=== PATIENT | male | born 1950 | race Caucasian/White ===

== ENCOUNTER 2023-10-12 06:52 | Outpatient (OUT) | payer MEDICARE, SELFPAY ==
--- NOTE | 2023-10-12 07:16 | MR_ITS ---
The [address] [address] Patient Name: LOUISE LOPEZ MRN: [id number] date: 1950 Sex: M Assigned Patient Location: LAB Current Patient Location: LAB Accession/Order Number: [id number] Exam Date: 10/12/2023 07:35 Report Date: 10/12/2023 09:12 At the request of: DANIEL HERNANDEZ Procedure: MR head/brain wo/w con MR head/brain wo/w con, 10/12/2023 7:35 AM EST INDICATION: Ataxia R27.0 COMPARISON: There is no appropriate prior study for comparison. TECHNIQUE: Multiplanar, multisequential MRI images of brain were obtained without and with injection of contrast. FINDINGS: The cerebral sulci as well as ventricular system are appropriate for age. There is no restricted diffusion. Hyperintensities on T2 and FLAIR images in the fowler radiata and centrum semiovale with sparing of U fibers are nonspecific, statistically most likely consistent with mild microvascular ischemic changes. There is no intracranial mass, mass effect, midline shift, intra or extra-axial fluid collection or large hemorrhage. No abnormal enhancing lesion is noted. Normal flow-void in the intracranial vessels is noted. The visualized portions of orbits, mastoid air cells as well as paranasal sinuses are unremarkable. MR/MR head/brain wo/w con IMPRESSION: No acute intracranial process is noted. No definite radiological finding to explain patient's symptoms. Electronically authenticated by: RALPH SÁNCHEZ Date: 10/12/2023 09:12
[2023-10-12 07:46] LABS: Estimated GFR (African America >60 (>=60); Estimated GFR (Non-African Ame >60 (>=60)
== END 2023-10-12 06:53 | disposition home or self-care (01) ==
LOC: LAB 06:56
PROVIDERS: PCP Family Medicine; Visit Provider Psychiatry & Neurology Neurology
DX: R27.0 Ataxia, unspecified (principal)
CPT/HCPCS: 36415; 70553; 82565; A9575

== ENCOUNTER 2024-03-22 15:22 | Emergency (ER) | payer MEDICARE, SELFPAY ==
[2024-03-22] VITALS (13 sets, daily range): BP systolic 127–135; BP diastolic 67–69; PULSE 54–70; TEMP 36.6; O2SAT 96–99; BMI 20.7
--- OUTSIDE RECORDS SUMMARY | 2024-03-22 15:39 | XMS_ITS | CCD ---
Author Organization [facility] Care Team Providers Care Data Operations Manager Name Role Phone Marya Son Primary Care Physician Vamsi Chang Primary Care Physician Unavailable Primary Care Provider UnavailAUDELIA Aguilera Attending Unavailable OMERO EDMONDS Attending Unavailable ELAINE MILLAN Attending Unavailable ELAINE MILLAN Attending Unavailable MD Vamsi Chang Attending Unavailable MD Vamsi Chang Attending Unavailable Nicole Mendez Attending Unavailable SHO HERBERT Attending UnavailSHO Sullivan Admitting UnavailNicole Marmolejo Attending Unavailable Nicole Mendez Admitting Unavailable MD Vamsi Chang Attending Unavailable Allergies Allergy Classification Reported Allergen(s) Allergy Type Date of Onset Reaction(s) Facility NSAIDs (1 source) NSAIDs; Translations: [NSAIDs] Drug Allergy [facility] Repository Unclassified (1 source) No Known Medication Allergies; Translations: [No Known Medication Allergies] Propensity to adverse reactions (disorder) [facility] Repository (2 sources) Non-steroidal anti-inflammato ry agent; Translations: [NSAIDs] Drug allergy Unknown (qualifier value) [facility] [place] Comment on above: effected Miners dise ase Medications Current Medications Medication Drug Class(es) Dates Sig (Normalized) Sig (Original) amoxicillin 120 mg/ml / clavulanate 8.58 mg/ml oral suspension (4 sources) Penicillin-class Antibacterial Start: 08-25-2022 End: 10-14-2023 take 8 mL by mouth twice daily amoxicillin-clavul anate (Augmentin ES) 600-42.9 MG/5ML suspension TAKE 8 ML BY MOUTH TWICE A DAY FOR 7 DAYS*DISCARD REMAINDER* 0 08/25/2022 10/14/2023 Discontinued Start: 08-25-2022 End: 09-01-2022 take 8 mL by mouth twice daily Augmentin ES 600 mg-42. 9 mg/5 mL Powder 125 mL 8 mL, Oral, BID for 7 day(s), 112 mL, Refill(s) 0, [facility]/pharmacy #[id number], 172, cm, 08/25/22 9:26:00 EST, Height/Length Dosing, 65.1, kg, 08/25/22 9:26:00 EST, Weight Dosing Start Date: 08/25/22 Stop Date: 09/01/22 Status: Ordered aspirin 81 mg delayed release oral tablet (2 sources) Platelet Aggregation Inhibitor, Nonsteroidal Anti-inflammatory Drug Start: 12-23-2022 take 1 tablet by mouth once daily aspirin 81 mg Oral EC Tab 81 mg = 1 tab(s), Oral, Daily, # 30 tab(s), Refills(s) 0 Start Date: 12/23/22 Status: Ordered atorvastatin 10 mg oral tablet (10 sources) HMG-CoA Reductase Inhibitor Start: 09-06-2011 take 1 tablet by mouth once daily Lipitor 10 mg Tab 10 mg = 1 tab(s), Oral, Daily, # 90 tab(s), Refills(s) 3, Pharmacy: [facility], 172, cm, 12/23/22 9:38:00 EDT, Height/Length Dosing, 64.9, kg, 12/23/22 9:38:00 EDT, Weight Dosing Start Date: 06/13/23 Status: Ordered famotidine 20 mg oral tablet (3 sources) Histamine-2 Receptor Antagonist Start: 02-04-2023 End: 10-14-2023 take 1 tablet by mouth in the morning famotidine (Pepcid) 20 MG tablet Take 20 mg by mouth in the morning and 20 mg before bedtime. 0 02/04/2023 10/14/2023 Discontinued omeprazole 40 mg delayed release oral capsule (3 sources) Proton Pump Inhibitor Start: 02-04-2023 End: 10-14-2023 take 1 capsule by mouth in the morning omeprazole (PriLOSEC) [address] capsule Take 40 mg by mouth in the morning. 0 02/04/2023 10/14/2023 Discontinued Problems Problem Classification Problem Date Documented Date Episodic/Chronic Disorders of lipid metabolism (9 sources) Hyperlipidemia; Translations: [Hyperlipidemia, unspecified] Onset: 06-15-2022 Chronic Esophageal disorders (8 sources) Gastroesophageal reflux disease without esophagitis; Translations: [Gastro-esophageal reflux disease without esophagitis] Onset: 06-15-2022 Chronic Immunizations and screening for infectious disease (1 source) Vaccination given; Translations: [Encounter for immunization] Onset: 06-16-2022 Episodic Neoplasms of unspecified nature or uncertain behavior (2 sources) Neoplastic disease; Translations: [Neoplasm of unspecified behavior of bone, soft tissue, and skin] 10-14-2023 Episodic Other nutritional; endocrine; and metabolic disorders (2 sources) Weight loss 08-22-2023 Episodic Other skin disorders (2 sources) Seborrheic keratosis; Translations: [Other seborrheic keratosis] 10-14-2023 Episodic Other upper respiratory infections (1 source) Acute maxillary sinusitis, unspecified; Translations: [Acute maxillary sinusitis, unspecified] Onset: 08-25-2022 Episodic Residual codes; unclassified (2 sources) Body mass index 20-24 - normal; Translations: [Body mass index (BMI) 22.0-22.9, adult] Onset: 06-16-2022 Episodic Residual codes; unclassified (2 sources) Patient encounter status; Translations: [Other specified health status] Onset: 06-16-2022 Episodic Residual codes; unclassified (2 sources) Amnesia 08-22-2023 Episodic Residual codes; unclassified (2 sources) Family history of dementia 08-22-2023 Episodic Screening and history of mental health and substance abuse codes (2 sources) Ex-smoker 12-23-2022 Episodic Unclassified (9 sources) Body mass index 20-24 - normal 06-16-2022 Unclassified (7 sources) Non-smoker 06-16-2022 Unclassified (6 sources) Patient encounter status 08-22-2023 Unclassified (2 sources) Seborrheic keratosis 02-08-2023 Results Test Name Value Interpretation Reference Range Facility Family Medicine Office/Clini c Noteon 03-06-2024 Family Medicine Office/Clinic Note Family Medicine Office/Clinic Note HPI Staff This visit was conducted via two-way, real-time interactive video communications by Vamsi Chang MD from my office using [employer]. The patient was [place] [address] [address] [place] [id number], with _ in attendance. A signed authorization for treatment has been obtained via our standard authorization packet or by verbal consent by the patient or their legal patient representative. The patient's identity and location in [place] has been verified by our office staff. If it is determined that the patient should be evaluated in the clinic, the patient will be directed to the appropriate clinic or venue. A limited physical exam will be conducted reviewing those areas of the body visible via telecommunications. Total time spent preparing the chart, conducting the encounter with the patient and family, and time spent documenting, reviewing, and ordering tests was _ minutes. All records and visits comply with HIPAA standards. Patient + for covid, body aches, Sore throat but it left after he woke up, some nasal congestion, fatigue, when he woke yesterday didn't feel the best so later in the day checked his temp fever of 101.5 and a bit later tested for covid and it came back positive. the headache and fever, some chest tightness and congestion. He's not sure if the tightness is the muscle aches or something else. no shortness of breath Hasn't tried anything at home not even tylenol for his body aches and fever. Patient or Guardian reported vitals: Temp: 100.0 Wt: 140 lbs Ht: _ BP: _ HR: _ Sp02: _ History of Present Illness - NO SOB, - Chest Tightness minimally - Fever - Body aches. - See staff HPI. - Physical Exam General: alert, no acute distress ENMT: oral mucosa moist, Cardiovascular: normal peripheral perfusion Respiratory: respirations non labored Extremities: no deformity, no trauma Neurological: oriented x 4, LOC appropriate for age, CN II-XII intact, Assessment/Plan 1. COVID-19 (U07.1: COVID-19) - Precautions discussed in detail. When to return discussed along with when to go to the ER. Pt verbalized understanding. - Azithro/Medrol - Pt struggled with steroids in the past. - Pros and Cons discussed in detail. - Follow up PRN Orders: azithromycin, = 1 packet(s), Oral, As Directed, as directed on package labeling, X 5 day(s), # 6 tab(s), Refills(s) 0, Pharmacy: [facility]/pharmacy #[id number], 172, cm, 08/22/23 8:38:00 EST, Height/Length Dosing, 63.8, kg, 08/22/23 8:38:00 EST, Weight Dosing methylPREDNISolone, = 1 packet(s), Oral, As Directed, as directed on package labeling, X 6 day(s), # 21 tab(s), Refills(s) 0, [id number], cm, 08/22/23 8:38:00 EST, Height/Length Dosing, 63.8, kg, 08/22/23 8:38:00 EST, Weight Dosing Follow-up No qualifying data available Problem List/Past Medical History Ongoing BMI 21.0-21.9, adult BMI 22.0-22.9, adult COVID-19 Family history of dementia Former smoker Gastroesophageal reflux disease without esophagitis Hyperlipidemia Loss of weight Memory loss Non-smoker Prostate cancer screening Screening for hyperlipidemia SK (seborrheic keratosis) Wellness examination Historical No qualifying data Procedure/Surgical History Bunion. Medications aspirin 81 mg Oral EC Tab, 81 mg= 1 tab(s), Oral, Daily azithromycin 250 mg Tab, 1 packet(s), Oral, As Directed Lipitor 10 mg Tab, 10 mg= 1 tab(s), Oral, Daily, 3 refills Medrol 4 mg Tab, 1 packet(s), Oral, As Directed Allergies NSAIDs (Unknown) Social History Tobacco Former smoker, quit more than 30 days ago Tobacco Use:. Never Smokeless Tobacco Use:. Cigarettes, Household tobacco concerns: No., 08/22/2023 Family History Family history is negative Immunizations Vaccine Date Status zoster vaccine live 02/04/2023 Recorded influenza virus vaccine, inactivated 06/16/2022 Given SARS-CoV-2 mRNA (tozinameran 5y-11y) vac 08/2021 Recorded SARS-CoV-2 mRNA (tozinameran 5y-11y) vac 2020 Recorded SARS-CoV-2 mRNA (tozinameran 5y-11y) vac 2020 Recorded typhoid vaccine, inactivated 05/21/2011 Recorded influenza virus vaccine, inactivated 05/21/2011 Recorded hepatitis A adult vaccine 05/21/2011 Recorded typhoid vaccine, live 12/24/1997 Recorded Hep A, unspecified formulation 11/27/1997 Recorded Td(adult) unspecified formulation 01/19/1996 Recorded typhoid vaccine, live 03/18/1992 Recorded typhoid vaccine, live 03/01/1990 Recorded typhoid vaccine, live 01/18/1989 Recorded Td(adult) unspecified formulation 01/18/1989 Recorded Normal [facility] Comment on above: Result Comment: Elec tronically Signed By: Bernardo GONZALEZ, Vamsi [employer]\Date and Time Signed: 03/06/24 11:57 EDT CHEMISTRYOrdered By: Patsy hooks on 12-07-2023 Cobalamin (Vitamin B12) [Mass/Vol] 259 pg/mL Normal 50 - 1500 pg/mL Remisol Chem Consent for Treatmenton Consent for Treatment [id number]#1 .00TIFF [facility] Physician Orderon 12-07-2023 Physician Order [id number]# 1.00TIFF [facility] Vit B12on 12-07-2023 Cobalamin (Vitamin B12) [Mass/Vol] 259 pg/mL Normal 50-1500 [facility] Comment on above: Performed By: #### 2 [id number] #### [facility] [address] [place] [address] Consultation Noteon 11-14-19 Consultation Note [id number]#1 .00TIFF [facility] Consultation Noteon 11-02-19 Consultation Note [id number]#1 .00TIFF [facility] RAD - MRI Reporton RAD - MRI Report [id number]#1 [facility] Panel Informationon 10-14 Type of biopsy: tangential Informed consent: discussed and consent obtained Informed consent comment: The risks and benefits of the biopsy were discussed. Risks include but are not limited to bleeding, infection, scarring, pain, and nerve damage. An opportunity to ask questions prior to the procedure was permitted and all questions were answered. Patient was prepped and draped in usual sterile fashion: area cleansed with alcohol. Anesthesia: the lesion was anesthetized in a standard fashion Anesthetic: 1% lidocaine w/ epinephrine 1-100,000 buffered w/ 8.4% NaHCO3 Instrument used: DermaBlade Hemostasis achieved with: electrodesiccation Outcome: patient tolerated procedure well Outcome comment: The specimen was placed in a prelabeled formalin container to be sent for pathology Post-procedure details: sterile dressing applied and wound care instructions given Post-procedure details comment: Emphasized need to contact clinic for any signs of infection, uncontrollable bleeding, or complications. Dressing type: bandage Additional details: Photo taken Amount of lidocaine used: 0.5 cc [facility] [employer] [facility] Consultation Noteon 09-12-19 24 Consultation Note [id number]#1 .00TIFF Normal [facility] Ambulatory Visit Summaryon 1 10-23-2022 Ambulatory Visit Summary LOUISE LOPEZ :1950 Visit Date:08/22/2023 Ambulatory Visit Instructions Your Diagnosis Wellness examination Prostate cancer screening Screening for hyperlipidemia Memory loss Family history of dementia Loss of weight BMI 21.0-21.9, adult Non-smoker Your Care Team Attending Physician - Nicole Hoskins Primary Care Physician - Vamsi Chang MD This Is Your Medications List aspirin (aspirin 81 mg Oral EC Tab) atorvastatin (Lipitor 10 mg Tab) Procedures Performed Bunion. Discharge Vitals Heart Rate (Peripheral) 64 Respiratory Rate 18 Blood Pressure 124/64 Height 172 cm Height 68 in Weight 63.8 kg Weight 140.36 lb BMI 21.57 What to do next Scheduled Follow-Up Appointments 2023 9:15 AM EDT With: Vamsi Chang MD Where: [facility] [place] Invalid Interpretation Code [address] [place] [address]- \.br\ Someone Will Contact You Regarding These Appointments\ .br\ [facility] External Ambulatory Referral, Neurology, memory loss, mother had dementia, 08/22/23 8:55:00 EST, Memory loss [facility] Auto Diffon 08-22-2023 Basophils/100 WBC (Bld) 0.9 % Normal 0.0-2.0 [facility] Comment on above: Order Comment: Order Added by Discern Expert. Performed By: #### 1 [id number], [id number], 7043871, 8431240, 7818330, 6278624, 7009267 ####[facility] [address] [place] [address] Basophils/Leukocytes Auto (Bld) [Pure # fraction] 0.0 E9/L Normal 0.0-0.2 [facility] Comment on above: Order Comment: Order Added by Discern Expert. Performed By: #### 1 [id number], 39936370, 8404205, 2682957, 6322457, 2641921, 5441468 ####[address] [address] Eosinophils/100 WBC (Bld) 2.1 % Normal 0.0-8.0 [facility] Comment on above: Order Comment: Order Added by Discern Expert. Performed By: #### 1 1171154, 92230671, 9096685, 2197548, 1788991, 9346760, 6871259 ####[address] [address] Eosinophils/Leukocyte s Auto (Bld) [Pure # fraction] 0.1 E9/L Normal 0.0-0.5 [facility] Comment on above: Order Comment: Order Added by Discern Expert. Performed By: #### 1 2278535, 38929800, 4914620, 1507475, 5119621, 2082241, 0682001 ####[address] [place] [address] Lymphocytes/100 WBC (Bld) 27.7 % Normal 14.0-50.0 [facility] Comment on above: Order Comment: Order Added by Discern Expert. Performed By: #### 1 3088834, 03277789, 6372884, 2355268, 1076862, 1194713, 3692771 ####[address] [place] [address] Lymphocytes/Leukocyte s Auto (Bld) [Pure # fraction] 1.0 E9/L Normal 1.0-4.0 [facility] Comment on above: Order Comment: Order Added by Discern Expert. Performed By: #### 1 0031849, 45634300, 5277427, 8627042, 7050809, 6526531, 1728527 ####[address] [address] Monocytes/100 WBC (Bld) 8.3 % Normal 4.0-14.0 [facility] Comment on above: Order Comment: Order Added by Iwona Expert. Performed By: #### 1 6000846, 56025665, 8941329, 1035820, 4739734, 5106607, 2641708 ####[address] [address] Monocytes/Leukocytes Auto (Bld) [Pure # fraction] 0.3 E9/L Normal 0.2-1.0 [facility] Comment on above: Order Comment: Order Added by Iwona Expert. Performed By: #### 1 5119003, 96033618, 4836579, 3975080, 7529684, 9058069, 7999618 ####[address] [address] Neutrophils/100 WBC (Bld) 61.0 % Normal 36.0-75.0 [facility] Comment on above: Order Comment: Order Added by Discern Expert. Performed By: #### 1 8719738, 73838745, 3116847, 5758675, 4460065, 5572189, 2013807 ####[address] [place] [address] Neutrophils/Leukocyte s Auto (Bld) [Pure # fraction] 2.2 E9/L Normal 2.0-7.5 [facility] Comment on above: Order Comment: Order Added by Iwona Expert. Performed By: #### 1 9787142, 00188984, 2550855, 5581801, 2183353, 5641342, 8174797 ####[facility] [address] [place] [address] CBC w/ Auto Diffon 3 Erythrocyte distribution width (RBC) [Ratio] 13.6 % Normal 10.9-14.2 [facility] Comment on above: Performed By: #### 1 3696066, 32698502, 1845699, 9192426, 7298762, 5368448, 8996215 ####[address] [place] [id number] Hematocrit (Bld) [Volume fraction] 43.5 % Normal 34.0-46.0 [facility] Comment on above: Performed By: #### 1 7181449, 22873374, 6438781, 5307284, 7644045, 5552935, 8130189 ####[address] [address] Hemoglobin (Bld) [Mass/Vol] 14.7 g/dL Normal 12.0-16.0 [facility] Comment on above: Performed By: #### 1 2076225, 37039904, 2365401, 4507419, 4244829, 1453991, 0184830 ####[address] [address] MCH (RBC) [Entitic mass] 30.6 pg Normal 27.0-34.0 [facility] Comment on above: Performed By: #### 1 0012692, 08978052, 0760535, 6282960, 6937241, 9681875, 5428907 ####[address] [address] MCHC (RBC) [Mass/Vol] 33.8 g/dL Normal 31.4-36.0 [facility] Comment on above: Performed By: #### 1 7625420, 58126239, 1940347, 8377549, 8410001, 7821066, 7695086 ####[address] [place] [address] MCV (RBC) [Entitic vol] 90.5 fL Normal 80.0-100.0 [facility] Comment on above: Performed By: #### 1 1843897, 18820953, 3850410, 9710427, 4808904, 7180289, 5444142 ####[facility] [address] [place] [address] Platelet mean volume (Bld) [Entitic vol] 8.6 fL Normal 6.4-10.8 [facility] Comment on above: Performed By: #### 1 7702105, 92551759, 8722308, 7078817, 0651867, 7131374, 7505182 ####[facility] [address] [place] [address] Platelets (Bld) [#/Vol] 272.0 E9/L Normal 150.0-500.0 [facility] Comment on above: Performed By: #### 1 2219807, 43864735, 5313846, 3990543, 8766229, 9761051, 5823421 ####[facility] [address] [place] [address] RBC (Bld) [#/Vol] 4.8 E12/L Normal 4.3-5.9 [facility] Comment on above: Performed By: #### 1 1075959, 70831856, 3082931, 3450416, 4588466, 1639457, 7857073 ####[facility] [address] [place] [address] WBC corrected for nucl RBC Auto (Bld) [#/Vol] 3.6 E9/L Low 4.0-11.0 [facility] Comment on above: Performed By: #### 1 1058941, 75092701, 1622104, 7729860, 7210589, 6629715, 0794497 ####[facility] [address] [place] [address] CHEMISTRYOrdered By: SYSTEM SYSTEM on 08-22-2023 Albumin [Mass/Vol] 4.1 g/dL Normal 3.3 - 5.0 gm/dL Remisol Chem Albumin/Globulin [Mass ratio] 1.3 {ratio} Normal 1.1 - 2.2 Remisol Chem Alk Phos 53 [iU]/d Normal 21 - 98 Int._Unit/L Remisol Chem ALT 16 [iU]/d Normal 6 - 46 Int._Unit/L Remisol Chem Anion gap [Moles/Vol] 10 mmol/L Normal 6 - 16 mEq/L R emisol Chem AST 20 [iU]/d Normal 5 - 43 Int._Unit/L Remisol Chem Bili Total 0.5 mg/dL Normal 0.0 - 1.1 mg/dL [facility] Calcium [Mass/Vol] 9.0 mg/dL Normal 8.9 - 11. 1 mg/dL [facility] Chloride [Moles/Vol] 103 mmol/L Normal 101 - 1 11 mmol/L [facility] Cholesterol [Mass/Vol] 117 mg/dL Low 120 - 200 mg/dL [facility] Cholesterol in HDL [Mass/Vol] 38 mg/dL Invalid Interpretation Code [facility] Comment on above: Result Comment: '>= 60 LOW RISK' '<= 40 HIGH RISK' Cholesterol in LDL [Mass/Vol] 73 mg/dL Normal <=129mg/dL Rem[facility] Chem Cholesterol in VLDL [Mass/Vol] 13 mg/dL Normal 7 - 40 mg/dL [facility] CO2 [Moles/Vol] 29 mmol/L Normal 21 - 31 mmol/L [facility] Creatinine [Mass/Vol] 0.9 mg/dL Normal 0.5 - 1.3 mg/dL [facility] eGFR mL/min/1.73 m2 Normal >=59mL/min/1. 73 m2 [facility] Globulin (S) [Mass/Vol] 3.1 g/dL Normal 1.4 - 4.0 gm/dL [facility] Glucose [Mass/Vol] 162 mg/dL Normal 55 - 199 mg/dL [facility] Potassium [Moles/Vol] 4.1 mmol/L Normal 3.5 - 5.3 mmol/L [facility] Protein [Mass/Vol] 7.2 g/dL Normal 6.0 - 7.8 gm/dL [facility] PSA Scrn Tot. 1.5 ng/mL Normal 0.1 - 3.5 ng/mL [facility] Comment on above: Interpretive Data: T he concentration of PSA determined by different manufacturers can vary due to differences in assay methods and reagent specificity. Values obtained from different assay methods cannot be used interchangeably. The methodology used for this result was chemiluminescence using [employer]'s Access Hy[employer]itech PSA reagent. Sodium [Moles/Vol] 138 mmol/L Normal 135 - 145 mmol/L [facility] Triglyceride [Mass/Vol] 64 mg/dL Normal <=149mg/dL [facility] TSH Qn 2.16 m[IU]/L Normal 0.34 - 5.60 mcIU/mL [facility] Urea nitrogen [Mass/Vol] 15 mg/dL Normal 5 - 21 mg/dL Rem[facility] Chem Urea nitrogen/Creatinine [Mass ratio] 17 mg/mg Normal 10 - 20 Remisol Chem CMPon 08-22-2023 Albumin [Mass/Vol] 4.1 g/dL Normal 3.3-5.0 [facility] Comment on above: Performed By: #### 1 8231469, 27477247, 7124685, 4783325, 1058088, 1437277, 4946653 ####[facility] [address] [place] [address] Albumin/Globulin [Mass ratio] 1.3 {ratio} Normal 1.1-2.2 [facility] Comment on above: Performed By: #### 1 2335202, 65437645, 8163518, 0307905, 0312177, 1542745, 4049559 ####[facility] [address] [place] [address] Alk Phos 53 Int._Unit/L Normal 21-98 [facility] Comment on above: Performed By: #### 1 6740642, 66399222, 5917785, 5506101, 4489512, 1854991, 2555923 ####[facility] [address] [place] [address] ALT 16 Int._Unit/L Normal 6-46 [facility] Comment on above: Performed By: #### 1 8815456, 28486629, 2373219, 1348590, 2426628, 8421995, 8910491 ####[facility] [address] [place] [address] Anion gap [Moles/Vol] 10 mmol/L Normal 6-16 [facility] Comment on above: Performed By: #### 1 8585367, 35765687, 1128988, 6447032, 7740933, 3398739, 7422929 ####[facility] [address] [place] [address] AST 20 Int._Unit/L Normal 5-43 [facility] Comment on above: Performed By: #### 1 9428831, 53869843, 7050049, 9021243, 6374781, 5942254, 0326491 ####[facility] [address] [place] [address] Bili Total 0.5 mg/dL Normal 0.0-1.1 [facility] Comment on above: Performed By: #### 1 6864845, 84800366, 1500549, 3328534, 8918946, 9840378, 9438608 ####[facility] [address] [place] [address] BUN/Creat Ratio 17 No Units Normal 10-20 [facility] Comment on above: Performed By: #### 1 8924488, 82126211, 3897476, 8192009, 3344996, 0360280, 2869136 ####[facility] [address] [place] [address] Calcium [Mass/Vol] 9.0 mg/dL Normal 8.9-11.1 [facility] Comment on above: Performed By: #### 1 6451398, 04893727, 0701079, 7749363, 6474980, 8861424, 2294589 ####[facility] [address] [place] [address] Chloride [Moles/Vol] 103 mmol/L Normal 101-111 [facility] Comment on above: Performed By: #### 1 5079673, 50818079, 9835375, 1929507, 7442469, 3669274, 1277482 ####[facility] [address] [place] [address] CO2 [Moles/Vol] 29 mmol/L Normal 21-31 [facility] Comment on above: Performed By: #### 1 9030805, 37313937, 8287915, 8556534, 7304138, 5261248, 8915176 ####[facility] [address] [place] [address] Creatinine [Mass/Vol] 0.9 mg/dL Normal 0.5-1.3 [facility] Comment on above: Performed By: #### 1 6706043, 46929549, 3309766, 1851827, 7828204, 8683204, 3504824 ####[facility] [address] [place] [address] Globulin (S) [Mass/Vol] 3.1 g/dL Normal 1.4-4.0 [facility] Comment on above: Performed By: #### 1 [id number], [id number], 6415657, 2168555, 2266716, 9458199, 7962750 ####[facility] [address] [place] [address] Glucose [Mass/Vol] 162 mg/dL Normal 55-199 [facility] Comment on above: Performed By: #### 1 [id number], [id number], 9796473, 4195267, 0360945, 6169277, 6980068 ####[facility] [address] [place] [address] Potassium [Moles/Vol] 4.1 mmol/L Normal 3.5-5.3 [facility] Comment on above: Performed By: #### 1 [id number], [id number], 1379716, 0580368, 9294499, 0029614, 3862833 ####[facility] [address] [place] [address] Protein [Mass/Vol] 7.2 g/dL Normal 6.0-7.8 [facility] Comment on above: Performed By: #### 1 [id number], [id number], 7781522, 6648335, 5941171, 4115521, 6518070 ####[facility] [address] [place] [address] Sodium [Moles/Vol] 138 mmol/L Normal 135-145 [facility] Comment on above: Performed By: #### 1 [id number], 59680510, 6073509, 8639420, 6176818, 3528371, 8468546 ####[facility] [address] [place] [address] Urea nitrogen [Mass/Vol] 15 mg/dL Normal 5-21 [facility] Comment on above: Performed By: #### 1 [id number], 95569601, 7577307, 8689751, 0900568, 4574964, 3711021 ####[facility] [address] [place] [address] Family Medicine Office/Clini c Noteon 08-22-2023 Family Medicine Office/Clinic Note HPI Staff Louise is a 72 year old male presenting for acute visit Pt c/o weight loss and having memory loss. FELI 8 months ago weight was 142.78Ibs Concerns: pt weight today 140 states he has moved and takes care of over 6 acres and is fixing a lot around the house and is a lot more active. Isn't getting good sleep he feels like pt does get up twice a night to use the bathroom and will have a hard time falling back asleep. Dry areas top of scalp pt went to [facility] [employer] and areas were froze. Pt hasn't been back to [facility] within this last week has been putting TRAM. Memory loss: within the last year, having hard time thinking of words such as sweatshirt. Retired in 2019 and was trying to think of peoples names he had worked with a long time and couldn't remember. History of Present Illness pt presents today for wellness visit/establish care. Review of Systems PHQ Score Initial Depression Screen Score: 0 SCORE ROS - Provider Constitutional: no fever, no chills, no sweats, no fatigue Respiratory: no shortness of breath, no cough, no orthopnea, no wheezing. Cardiovascular: no chest pain, no palpitations, no edema. Neurologic: no headache, no dizziness, no numbness, no weakness. weight loss, memory loss, difficulty sleeping Physical Exam Vitals & Measurements HR: 64(Peripheral) RR: 18 BP: 124/64 SpO2: 99% HT: 68 in HT: 172 cm WT: 63.8 kg WT: 140.36 lb BMI: 21.57 General: alert, no acute distress, pt is thin, dry rough areas on scalp ENMT: oral mucosa moist, no pharyngeal erythema or exudate Cardiovascular: regular rate and rhythm, normal peripheral perfusion Respiratory: Lungs CTA, respirations non labored Extremities: no deformity, no trauma Neurological: oriented x 4, LOC appropriate for age, CN II-XII intact, motor strength equal & normal bilaterally, speech normal Assessment/Plan 1. Wellness examination (Z00.00: Encounter for general adult medical examination without abnormal findings) pt presents today for wellness exam. his concerns today are weight loss and memory loss. mini mental screen performed and WNL. will draw labs in office today and refer to Neuro since he has a family history of dementia. mom and grandmother both had it. other adrian he denies any other complaints. all questions answered. Referral to [facility] will be placed. RTC as needed Ordered: CBC w/ Auto Diff Comprehensive Metabolic Panel Lab Specimen Collect [id number] Lipid Panel PSA Screen, Total Thyroid Stimulating Hormone 2. Prostate cancer screening (Z12.5: Encounter for screening for malignant neoplasm of prostate) PSA drawn in office today. pt c/o frequent night time urination Ordered: CBC w/ Auto Diff Comprehensive Metabolic Panel Lab Specimen Collect [id number] Lipid Panel PSA Screen, Total Thyroid Stimulating Hormone 3. Screening for hyperlipidemia (Z13.220: Encounter for screening for lipoid disorders) labs drawn in office today Ordered: CBC w/ Auto Diff Comprehensive Metabolic Panel Lab Specimen Collect [id number] Lipid Panel PSA Screen, Total Thyroid Stimulating Hormone 4. Memory loss (R41.3: Other amnesia) pt and both notice his memory is progressively worsening. having trouble coming up with words. can not remember the names of people he worked with for several years. At first he thought it was just because he was getting older. but feels it may be more than that now. Ordered: [facility] External Ambulatory Referral 5. Family history of dementia (Z81.8: Family history of other mental and behavioral disorders) see above Ordered: [facility] External Ambulatory Referral 6. Loss of weight (R63.4: Abnormal weight loss) pt states his keeps complaining that he has lost too much weight. since moving to [place] patient has been busy working outside. pt denies pain, nausea, or vomiting. pt states he just doesn't eat as much as he used to. previously he would eat a full plate for lunch and dinner. now he barely gets down 1/2 a plate for lunch. and never finishes a full plate for dinner either. 7. BMI 21.0-21.9, adult (Z68.21: Body mass index [BMI] 21.0-21.9, adult) BMI education complete Ordered: famotidine, 20 mg = 1 tab(s), Oral, BID, # 60 tab(s), Refills(s) 3, Pharmacy: [facility]/pharmacy #[id number], 172, cm, 12/23/22 9:38:00 EDT, Height/Length Dosing, 64.9, kg, 12/23/22 9:38:00 EDT, Weight Dosing omeprazole, 40 mg = 1 cap(s), Oral, Daily, # 14 cap(s), Refills(s) 0, [id number], 172, cm, 12/23/22 9:38:00 EDT, Height/Length Dosing, 64.9, kg, 12/23/22 9:38:00 EDT, Weight Dosing 8. Non-smoker (Z78.9: Other specified health status) continue not smoking 9. SK (seborrheic keratosis) (L82.1: Other seborrheic keratosis) pt had some areas on his scalp treated at [facility]. will call them to let them know they are still there. Follow-up No qualifying data available Problem List/Past Medical History Ongoing BMI 21.0-21.9, adult BMI 22.0-22.9, adult Family history of dementia Forme (more content not included)... Normal [facility] Comment on above: Result Comment: Elec tronically Signed By: Nicole Hoskins\.br\Date and Time Signed: 08/22/23 11:38 EST HEMATOLOGYOrdered By: SYSTEM SYSTEM on 08-22-2023 Basophils/100 WBC (Bld) 0.9 % Normal 0.0 - 2.0 % [facility] Basophils/Leukocytes Auto (Bld) [Pure # fraction] 0.0 E9/L Normal 0.0 - 0.2 E9/L [facility] Eosinophils/100 WBC (Bld) 2.1 % Normal 0.0 - 8.0 % [facility] Eosinophils/Leukocyte s Auto (Bld) [Pure # fraction] 0.1 E9/L Normal 0.0 - 0.5 E9/L [facility] Lymphocytes/100 WBC (Bld) 27.7 % Normal 14.0 - 50.0 % [facility] Lymphocytes/Leukocyte s Auto (Bld) [Pure # fraction] 1.0 E9/L Normal 1.0 - 4.0 E9/L [facility] Monocytes/100 WBC (Bld) 8.3 % Normal 4.0 - 14.0 % [facility] Monocytes/Leukocytes Auto (Bld) [Pure # fraction] 0.3 E9/L Normal 0.2 - 1.0 E9/L [facility] Neutrophils/100 WBC (Bld) 61.0 % Normal 36.0 - 75.0 % [facility] Neutrophils/Leukocyte s Auto (Bld) [Pure # fraction] 2.2 E9/L Normal 2.0 - 7.5 E9/L [facility] HEMATOLOGYOrdered By: Toni Porter on 08-22-2023 Erythrocyte distribution width (RBC) [Ratio] 13.6 % Normal 10.9 - 14.2 % [facility] Hematocrit (Bld) [Volume fraction] 43.5 % Normal 34.0 - 46.0 % [facility] Hemoglobin (Bld) [Mass/Vol] 14.7 g/dL Normal 12.0 - 16.0 gm/dL [facility] MCH (RBC) [Entitic mass] 30.6 pg Normal 27.0 - 34.0 pg [facility] MCHC (RBC) [Mass/Vol] 33.8 g/dL Normal 31.4 - 36.0 gm/dL [facility] MCV (RBC) [Entitic vol] 90.5 fL Normal 80.0 - 100.0 fL [facility] Platelet mean volume (Bld) [Entitic vol] 8.6 fL Normal 6.4 - 10.8 fL [facility] Platelets (Bld) [#/Vol] 272.0 E9/L Normal 150.0 - 500.0 E9/L [facility] HemeAuto[facility] RBC (Bld) [#/Vol] 4.8 E12/L Normal 4.3 - 5.9 E12/L [facility] HemeAuto[facility] WBC corrected for nucl RBC Auto (Bld) [#/Vol] 3.6 E9/L Low 4.0 - 11.0 E9/L [facility] HemeAutoSS Lipid Panelon 08-22-2023 Cholesterol [Mass/Vol] 117 mg/dL Low 120-200 [facility] Comment on above: Performed By: #### 1 [id number], 87451639, 8868071, 2127294, 0978311, 4080159, 4729944 ####[facility] [address] [place] [address] Cholesterol in HDL [Mass/Vol] 38 mg/dL Invalid Interpretation Code [facility] Comment on above: Result Comment: '>= 60 LOW RISK' '<= 40 HIGH RISK' Performed By: #### 1 [id number], 82691485, 4822936, 5762253, 5603011, 6503990, 6022911 ####[facility] [address] [place] [address] Cholesterol in LDL [Mass/Vol] 73 mg/dL Normal <=129 [facility] Comment on above: Performed By: #### 1 3311272, 90576766, 0883498, 6319269, 7441171, 6618309, 2807116 ####[facility] [address] [place] [address] Cholesterol in VLDL [Mass/Vol] 13 mg/dL Normal 7-40 [facility] Comment on above: Performed By: #### 1 4590695, 39573296, 9812479, 9047089, 8236403, 7580438, 3427067 ####[facility] [address] [place] [address] Triglyceride [Mass/Vol] 64 mg/dL Normal <=149 [facility] Comment on above: Performed By: #### 1 1244969, 72210833, 2461364, 8355675, 3441181, 8844962, 2164064 ####[facility] [address] [place] [address] PSA Screen, Totalon 08-22-20 PSA Scrn Tot. 1.5 ng/mL Normal 0.1-3.5 [facility] Comment on above: Result Comment: The concentration of PSA determined by different manufacturers can vary due to differences in assay methods and reagent specificity. Values obtained from different assay methods cannot be used interchangeably. The methodology used for this result was chemiluminescence using [employer]'s Stand Offer Hybritech PSA reagent. Performed By: #### 1 [id number], 66922691, 7825381, 4511679, 6859324, 3483370, 8019519 ####[facility] [address] [place] [address] Physician Referralon 023 Physician Referral [id number]# 1.00TIFF Normal [facility] TSHon 08-22-2023 TSH Qn 2.16 m[IU]/L Normal 0.34-5.60 [facility] Comment on above: Performed By: #### 1 [id number], 77578924, 9734510, 3775189, 6567910, 5529297, 6654380 ####[address] [place] [address] eGFRon 08-22-2023 GFR/1.73 sq M.predicted among non-blacks MDRD (S/P/Bld) [Vol rate/Area] mL/min/{1.73_m2} Normal >=59 [facility] Comment on above: Order Comment: Order added by Discern Expert. Performed By: #### 1 [id number], 23004068, 8178662, 3597107, 0145735, 4630933, 3637324 ####[address] [place] [address] Consultation Noteon 03-19-20 Consultation Note [id number] .00CD:127 Normal [facility] CHEMISTRYOrdered By: SYSTEM SYSTEM on 06-24-2022 Albumin [Mass/Vol] 4.2 g/dL Normal 3.3 - 5.0 gm/dL [facility] Albumin/Globulin [Mass ratio] 1.0 {ratio} Low 1.1 - 2.2 [facility] ALP [Catalytic activity/Vol] 55 [iU]/d Normal 21 - 98 Int._Unit/L [facility] ALT No additional P-5'-P [Catalytic activity/Vol] 21 [iU]/d Normal 6 - 46 Int._Unit/L [facility] Anion gap [Moles/Vol] 12 mmol/L Normal 6 - 16 mEq/L F [facility] AST [Catalytic activity/Vol] 25 [iU]/d Normal 5 - 43 Int._Unit/L [facility] Bilirubin [Mass/Vol] 0.7 mg/dL Normal 0.0 - 1 .1 mg/dL [facility] Calcium [Mass/Vol] 9.1 mg/dL Normal 8.9 - 11. 1 mg/dL [facility] Chloride [Moles/Vol] 102 mmol/L Normal 101 - 1 11 mmol/L [facility] Cholesterol [Mass/Vol] 124 mg/dL Normal 120 - 200 mg/dL [facility] Cholesterol in HDL [Mass/Vol] 38 mg/dL Invalid Interpretation Code [facility] Cholesterol in LDL [Mass/Vol] 81 mg/dL Normal <=129mg/dL [facility] Cholesterol in VLDL [Mass/Vol] 9 mg/dL Normal 7 - 40 mg/dL [facility] CO2 [Moles/Vol] 28 mmol/L Normal 21 - 31 mmol/L [facility] Creatinine [Mass/Vol] 1.0 mg/dL Normal 0.5 - 1.3 mg/dL [facility] GFR/1.73 sq M.predicted among blacks MDRD (S/P/Bld) [Vol rate/Area] mL/min/1.73 m2 Normal >=59mL/min/1. 73 m2 [facility] Chem S GFR/1.73 sq M.predicted among non-blacks MDRD (S/P/Bld) [Vol rate/Area] mL/min/1.73 m2 Normal >=59mL/min/1. 73 m2 [facility] Chem S Globulin (S) [Mass/Vol] 4.0 g/dL Normal 1.4 - 4.0 gm/dL [facility] Glucose [Mass/Vol] 90 mg/dL Normal 55 - 199 mg/dL [facility] Potassium [Moles/Vol] 4.0 mmol/L Normal 3.5 - 5.3 mmol/L [facility] Protein [Mass/Vol] 8.2 g/dL High 6.0 - 7.8 gm/dL [facility] Sodium [Moles/Vol] 138 mmol/L Normal 135 - 145 mmol/L [facility] Triglyceride [Mass/Vol] 45 mg/dL Normal <=149mg/dL [facility] TSH Qn 1.60 m[IU]/L Normal 0.34 - 5.60 mcIU/mL [facility] Urea nitrogen [Mass/Vol] 21 mg/dL Normal 5 - 21 mg/dL [facility] Urea nitrogen/Creatinine [Mass ratio] 21 mg/mg High [facility] CHEMISTRYOrdered By: Abelardo Celaya on 06-24-2022 HbA1c (Bld) [Mass fraction] 5.2 % Normal <=5.9% [facility] HEMATOLOGYOrdered By: SYSTEM SYSTEM on 06-24-2022 Basophils/100 WBC (Bld) 0.9 % Normal 0.0 - 2.0 % [facility] Basophils/Leukocytes Auto (Bld) [Pure # fraction] 0.0 E9/L Normal 0.0 - 0.2 E9/L [facility] Eosinophils/100 WBC (Bld) 1.9 % Normal 0.0 - 8.0 % [facility] Eosinophils/Leukocyte s Auto (Bld) [Pure # fraction] 0.1 E9/L Normal 0.0 - 0.5 E9/L [facility] Lymphocytes/100 WBC (Bld) 25.6 % Normal 14.0 - 50.0 % [facility] Lymphocytes/Leukocyte s Auto (Bld) [Pure # fraction] 1.1 E9/L Normal 1.0 - 4.0 E9/L [facility] Monocytes/100 WBC (Bld) 11.5 % Normal 4.0 - 14.0 % [facility] Monocytes/Leukocytes Auto (Bld) [Pure # fraction] 0.5 E9/L Normal 0.2 - 1.0 E9/L [facility] Neutrophils/100 WBC (Bld) 60.1 % Normal 36.0 - 75.0 % [facility] Neutrophils/Leukocyte s Auto (Bld) [Pure # fraction] 2.6 E9/L Normal 2.0 - 7.5 E9/L [facility] HEMATOLOGYOrdered By: Javier Jarvis on 06-24-2022 Erythrocyte distribution width (RBC) [Ratio] 13.2 % Normal 10.9 - 14.2 % [facility] Hematocrit (Bld) [Volume fraction] 45.0 % Normal 34.0 - 46.0 % [facility] Hemoglobin (Bld) [Mass/Vol] 15.0 g/dL Normal 12.0 - 16.0 gm/dL [facility] MCH (RBC) [Entitic mass] 30.0 pg Normal 27.0 - 34.0 pg [facility] MCHC (RBC) [Mass/Vol] 33.4 g/dL Normal 31.4 - 36.0 gm/dL [facility] MCV (RBC) [Entitic vol] 89.9 fL Normal 80.0 - 100.0 fL [facility] Platelet mean volume (Bld) [Entitic vol] 8.1 fL Normal 6.4 - 10.8 fL [facility] Platelets (Bld) [#/Vol] 252.0 E9/L Normal 150.0 - 500.0 E9/L [facility] RBC (Bld) [#/Vol] 5.0 E12/L Normal 4.3 - 5.9 E12/L [facility] WBC corrected for nucl RBC Auto (Bld) [#/Vol] 4.3 E9/L Normal 4.0 - 11.0 E9/L [facility] Vital Signs Date Time Vital Sign Value Performing Clinician Facility 09-22-2022 14:15-0500 Blood Pressure Location Marya Huy [facility] 09-22-2022 14:15-0500 Body temperature 98.24 [degF] Marya Barrell [facility] 09-22-2022 14:15-0500 Diastolic blood pressure 68 mm[Hg] Marya Son [facility] 09-22-2022 14:15-0500 Heart rate 67 /min Marya Barrell [facility] 09-22-2022 14:15-0500 SaO2% (BldA) [Mass fraction] 98 % Marya Barrell [facility] 09-22-2022 14:15-0500 Systolic blood pressure 116 mm[Hg] Marya Barrell [facility] 08-25-2022 09:23-0500 Blood Pressure Location Cari CAMARILLO [facility] 08-25-2022 09:23-0500 Body temperature 98.6 [degF] Cari CAMARILLO [facility] 08-25-2022 09:23-0500 Diastolic blood pressure 72 mm[Hg] Cari CAMARILLO [facility] 08-25-2022 09:23-0500 Heart rate 76 /min Cari CAMARILLO [facility] 08-25-2022 09:23-0500 SaO2% (BldA) [Mass fraction] 97 % Cari CAMARILLO [facility] 08-25-2022 09:23-0500 Systolic blood pressure 124 mm[Hg] Cari CAMARILLO [facility] 06-16-2022 13:24-0400 Blood Pressure Location Marya Son [facility] 06-16-2022 13:24-0400 Body temperature 97.52 [degF] Marya Son [facility] 06-16-2022 13:24-0400 Diastolic blood pressure 60 mm[Hg] Marya Son [facility] 06-16-2022 13:24-0400 Heart rate 57 /min Marya Barrell [facility] 06-16-2022 13:24-0400 SaO2% (BldA) [Mass fraction] 98 % Marya Son [facility] 06-16-2022 13:24-0400 Systolic blood pressure 118 mm[Hg] Marya Son [facility] Encounters Encounter Date Encounter Type Care Provider Facility Start: 03-12-2024 ambulatory MD Vamsi Covington ity: [facility] Start: 03-06-2024 ambulatory MD Vamsi Covington ity:[facility] [place] Start: 01-05-2024 End: 01-05-2024 ambulatory ELAINE A FELTER Not Available Start: 12-22-2023 End: 12-22-2023 ambulatory ELAINE A FELTER Not Available Start: 12-22-2023 ambulatory MD Vamsi Covington ity:[facility] Start: 12-07-2023 End: 12-07-2023 ambulatory SHO HERBERT Facility:[facility] Start: 12-07-2023 End: 12-07-2023 Patient encounter procedure SHO HERBERT [facility] Start: 11-17-2023 End: 11-17-2023 ambulatory OMERO EDMONSD Not Available Start: 10-14-2023 Bamboo flowsheet Audelia ibrahim MD Work Phone: [facility] Start: 10-14-2023 Bamboo flowsheet Audelia ibrahim MD Work Phone: [facility] Start: 10-14-2023 End: 10-14-2023 ambulatory AUDELIA SOLIS Not Available Start: 10-14-2023 End: 10-14-2023 Office outpatient visit 10 minutes Audelia Solis MD Work Phone: [facility] Comment on above: Seborrheic keratosis (Primary Dx); Neoplasm of unspecified behavior of bone, soft tissue, and skin Start: 08-22-2023 End: 08-22-2023 Lab Drop off Nicole L Andrea [facility] Start: 08-22-2023 End: 08-22-2023 ambulatory Nicole L Andrea Facility:[facility] Start: 09-22-2022 End: 09-22-2022 Patient encounter procedure Marya Son [facility] Start: 08-25-2022 End: 08-25-2022 Patient encounter procedure Cari CAMARILLO [facility] Start: 06-24-2022 End: 06-24-2022 Patient encounter procedure Marya Son [facility] Start: 06-18-2022 End: 06-18-2022 Patient encounter procedure Marya Son [facility] Start: 06-16-2022 End: 06-16-2022 Patient encounter procedure Marya Son [facility] Procedures Date Procedure Procedure Detail Performing Clinician Start: 10-14-2023 SKIN / NAIL BIOPSY Audelia Solis MD Work Phone: Swelling of first metatarsophalangeal joint of hallux (disorder) Marya Son Plan of Treatment Date Care Activity Detail Author Dermatopathology exam Dermatopat hology exam Pathology and Cytology Timed Neoplasm of unspecified behavior of bone, soft tissue, and skin Release Upon Ordering for 1 Occurrences starting 10/14/2023 [facility] Work Phone: Comment on above: Release Upon Ordering for 1 Occurrences starting 10/14/2023 Immunizations Immunization Date Immunization Notes Care Provider Fa [facility] 02-04-2023 zoster vaccine, live Nicole Sc hwab [facility] [place] 06-16-2022 influenza, high dose seasonal, preservative-free Marya Son [facility] 08-05-2021 SARS-CoV-2 mRNA (tozinameran 5y-11y) vaccine Marya Son [facility] 09-05-2020 SARS-CoV-2 mRNA (tozinameran 5y-11y) vaccine Marya Son [facility] 05-21-2011 hepatitis A vaccine, adult dosage Marya Son [facility] 05-21-2011 influenza virus vaccine, unspecified formulation Marya Son [facility] 05-21-2011 typhoid vaccine, unspecified formulation Marya Son [facility] 12-24-1997 typhoid vaccine, unspecified formulation Marya Son [facility] 11-27-1997 Hep A, unspecified formulation Marya Son [facility] 01-19-1996 Td(adult) unspecifie d formulation Marya Son [facility] 03-18-1992 typhoid vaccine, unspecified formulation Marya Son [facility] 03-01-1990 typhoid vaccine, unspecified formulation Marya Son [facility] 01-18-1989 Td(adult) unspecifie d formulation Marya Son [facility] 01-18-1989 typhoid vaccine, unspecified formulation Marya Son [facility] Payers Date Payer Category Payer Medicare A[employer]NA MEDICARE A DVANTAGE AETNA MEDICARE REPLACEMENT [id number] 2021-Present [address] [place] [address] [id number] 2021 Medicare [id number] 1950 Unknown [id number] 1950 Unknown [id number] 1950 Unknown [id number] 1950 Unknown [id number] [id number] 1950 Unknown [id number] [id number] 1950 Unknown [id number] [id number] 1950 Unknown [id number] [id number] 1950 Unknown [id number] [id number] 1950 Unknown [id number] [id number] 1950 Unknown [id number] Social History Date Type Detail Facility Start: 06-16-2022 End: 08-22-2023 Tobacco smoking status Ex-smoker (finding) [facility] Tobacco smoking status Never Dejah [facility] Start: 03-18-2023 End: 10-14-2023 Sex Assigned At Female [facility] Start: 03-18-2023 Tobacco smoking stat [facility] Never smoked tobacco [facility] Start: 03-18-2023 Tobacco use and exposure Smokeless tobacco non-user [facility] Start: 03-18-2023 End: 10-14-2023 History of Social function [facility] Start: 1950 Sex Assigned At Not on file [facility] Functional Status Date Assessment Result Facility 09-22-2022 Functional Status N/A [facility] 08-25-2022 Functional Status N/A [facility] 06-16-2022 Functional Status N/A [facility] Clinical Notes 06-08-2022 to 10-14-2023 Audelia Solis MD - 10/14/2023 10:15 AM ESTRadiology Note Date & Type Note Facility 10-14-2023 History of Present illness Narrative Images from the original note were not included. Lesion(s) Location: scalp Duration: years Quality: denies pain, denies itch Modifying factors: aggravated by picking Associated symptoms: rough, scaly Treatments: moisturizer Established patient All pertinent medical history, medications, and allergies were reviewed. General Exam: alert , oriented to person, place, and time , normal affect, well appearing Unaccompanied A focused exam completed based on patient reported problems, see below: 1. Neoplasm of unspecified behavior of bone, soft tissue, and skin Mid Parietal Scalp Hyperkeratotic papule Lesion biopsy Type of biopsy: tangential Informed consent: discussed and consent obtained Informed consent comment: The risks and benefits of the biopsy were discussed. Risks include but are not limited to bleeding, infection, scarring, pain, and nerve damage. An opportunity to ask questions prior to the procedure was permitted and all questions were answered. Patient was prepped and draped in usual sterile fashion: area cleansed with alcohol. Anesthesia: the lesion was anesthetized in a standard fashion Anesthetic: 1% lidocaine w/ epinephrine 1-100,000 buffered w/ 8.4% NaHCO3 Instrument used: DermaBlade Hemostasis achieved with: electrodesiccation Outcome: patient tolerated procedure well Outcome comment: The specimen was placed in a prelabeled formalin container to be sent for pathology Post-procedure details: sterile dressing applied and wound care instructions given Post-procedure details comment: Emphasized need to contact clinic for any signs of infection, uncontrollable bleeding, or complications. Dressing type: bandage Additional details: Photo taken Amount of lidocaine used: 0.5 cc Specimen A - Dermatopathology exam Differential Diagnosis: SCC vs ISK Check Margins: No Size of lesion: 1.5 x 1.3 cm 2. Seborrheic keratosis Mid Parietal Scalp Stuck on verrucous, cowart-brown papules and plaques. Patient was counseled regarding these benign growths. Removal is normally not necessary, but they may be removed if they are symptomatic or for cosmetic reasons. Next Visit: pending biopsy results documented in this encounter [facility] 09-22-2022 Hospital Discharge instructions Patient Education 09/22/2022 15:01:48 High Cholesterol High Cholesterol High cholesterol is a condition in which the blood has high levels of a white, waxy, fat-like substance (cholesterol). The human body needs small amounts of cholesterol. The liver makes all the cholesterol that the body needs. Extra (excess) cholesterol comes from the food that we eat. Cholesterol is carried from the liver by the blood through the blood vessels. If you have high cholesterol, deposits (plaques) may build up on the cárdenas of your blood vessels (arteries). Plaques make the arteries narrower and stiffer. Cholesterol plaques increase your risk for heart attack and stroke. Work with your health care provider to keep your cholesterol levels in a healthy range. What increases the risk? This condition is more likely to develop in people who: Eat foods that are high in animal fat (saturated fat) or cholesterol. Are overweight. Are not getting enough exercise. Have a family history of high cholesterol. What are the signs or symptoms? There are no symptoms of this condition. How is this diagnosed? This condition may be diagnosed from the results of a blood test. If you are older than age 20, your health care provider may check your cholesterol every 4 6 years. You may be checked more often if you already have high cholesterol or other risk factors for heart disease. The blood test for cholesterol measures: Bad cholesterol (LDL cholesterol). This is the main type of cholesterol that causes heart disease. The desired level for LDL is less than 100. Good cholesterol (HDL cholesterol). This type helps to protect against heart disease by cleaning the arteries and carrying the LDL away. The desired level for HDL is 60 or higher. Triglycerides. These are fats that the body can store or burn for energy. The desired number for triglycerides is lower than 150. Total cholesterol. This is a measure of the total amount of cholesterol in your blood, including LDL cholesterol, HDL cholesterol, and triglycerides. A healthy number is less than 200. How is this treated? This condition is treated with diet changes, lifestyle changes, and medicines. Diet changes This may include eating more whole grains, fruits, vegetables, nuts, and fish. This may also include cutting back on red meat and foods that have a lot of added sugar. Lifestyle changes Changes may include getting at least 40 minutes of aerobic exercise 3 times a week. Aerobic exercises include walking, biking, and swimming. Aerobic exercise along with a healthy diet can help you maintain a healthy weight. Changes may also include quitting smoking. Medicines Medicines are usually given if diet and lifestyle changes have failed to reduce your cholesterol to healthy levels. Your health care provider may prescribe a statin medicine. Statin medicines have been shown to reduce cholesterol, which can reduce the risk of heart disease. Follow these instructions at home: Eating and drinking If told by your health care provider: Eat chicken (without skin), fish, veal, shellfish, ground turkey breast, and round or loin cuts of red meat. Do not eat fried foods or fatty meats, such as hot dogs and salami. Eat plenty of fruits, such as apples. Eat plenty of vegetables, such as broccoli, potatoes, and carrots. Eat beans, peas, and lentils. Eat grains such as barley, rice, couscous, and bulgur wheat. Eat pasta without cream sauces. Use skim or nonfat milk, and eat low-fat or nonfat yogurt and cheeses. Do not eat or drink whole milk, cream, ice cream, egg yolks, or hard cheeses. Do not eat stick margarine or tub margarines that contain trans fats (also called partially hydrogenated oils). Do not eat saturated tropical oils, such as coconut oil and palm oil. Do not eat cakes, cookies, crackers, or other baked goods that contain trans fats. General instructions Exercise as directed by your health care provider. Increase your activity level with activities such as gardening, walking, and taking the stairs. Take jlbq-udf-uglxnvq and prescription medicines only as told by your health care provider. Do not use any products that contain nicotine or tobacco, such as cigarettes and e-cigarettes. If you need help quitting, ask your health care provider. Keep all follow-up visits as told by your health care provider. This is important. Contact a health care provider if: You are struggling to maintain a healthy diet or weight. You need help to start on an exercise program. You need help to stop smoking. Get help right away if: You have chest pain. You have trouble breathing. This information is not intended to replace advice given to you by your health care provider. Make sure you discuss any questions you have with your health care provider. Document Released: 08/22/2006 Document Revised: 08/25/2018 Document Reviewed: 02/19/2017 [employer] Patient Education 2020 [employer]. Follow Up Care 06/16/2022 15:51:10 With:Marya Son CNP Address: [address] [place] [phone] When:1 year [facility] 08-25-2022 Hospital Discharge instructions Patient Education 08/25/2022 09:58:31 Sinusitis, Adult, Rixf-sf-Ymda Sinusitis, Adult Sinusitis is soreness and swelling (inflammation) of your sinuses. Sinuses are hollow spaces in the bones around your face. They are located: Around your eyes. In the middle of your forehead. Behind your nose. In your cheekbones. Your sinuses and nasal passages are lined with a fluid called mucus. Mucus drains out of your sinuses. Swelling can trap mucus in your sinuses. This lets germs (bacteria, virus, or fungus) grow, which leads to infection. Most of the time, this condition is caused by a virus. What are the causes? This condition is caused by: Allergies. Asthma. Germs. Things that block your nose or sinuses. Growths in the nose (nasal polyps). Chemicals or irritants in the air. Fungus (rare). What increases the risk? You are more likely to develop this condition if: You have a weak body defense system (immune system). You do a lot of swimming or diving. You use nasal sprays too much. You smoke. What are the signs or symptoms? The main symptoms of this condition are pain and a feeling of pressure around the sinuses. Other symptoms include: Stuffy nose (congestion). Runny nose (drainage). Swelling and warmth in the sinuses. Headache. Toothache. A cough that may get worse at night. Mucus that collects in the throat or the back of the nose (postnasal drip). Being unable to smell and taste. Being very tired (fatigue). A fever. Sore throat. Bad breath. How is this diagnosed? This condition is diagnosed based on: Your symptoms. Your medical history. A physical exam. Tests to find out if your condition is short-term (acute) or long-term (chronic). Your doctor may: ?Check your nose for growths (polyps). ?Check your sinuses using a tool that has a light (endoscope). ?Check for allergies or germs. ?Do imaging tests, such as an MRI or CT scan. How is this treated? Treatment for this condition depends on the cause and whether it is short-term or long-term. If caused by a virus, your symptoms should go away on their own within 10 days. You may be given medicines to relieve symptoms. They include: ?Medicines that shrink swollen tissue in the nose. ?Medicines that treat allergies (antihistamines). ?A spray that treats swelling of the nostrils. ?Rinses that help get rid of thick mucus in your nose (nasal saline washes). If caused by bacteria, your doctor may wait to see if you will get better without treatment. You may be given antibiotic medicine if you have: ?A very bad infection. ?A weak body defense system. If caused by growths in the nose, you may need to have surgery. Follow these instructions at home: Medicines Take, use, or apply tiuq-fxm-hqhtvtv and prescription medicines only as told by your doctor. These may include nasal sprays. If you were prescribed an antibiotic medicine, take it as told by your doctor. Do not stop taking the antibiotic even if you start to feel better. Hydrate and humidify Drink enough water to keep your pee (urine) pale yellow. Use a cool mist humidifier to keep the humidity level in your home above 50%. Breathe in steam for 10 15 minutes, 3 4 times a day, or as told by your doctor. You can do this in the bathroom while a hot shower is running. Try not to spend time in cool or dry air. Rest Rest as much as you can. Sleep with your head raised (elevated). Make sure you get enough sleep each night. General instructions Put a warm, moist washcloth on your face 3 4 times a day, or as often as told by your doctor. This will help with discomfort. Wash your hands often with soap and water. If there is no soap and water, use hand forming fixer. Do not smoke. Avoid being around people who are smoking (secondhand smoke). Keep all follow-up visits as told by your doctor. This is important. Contact a doctor if: You have a fever. Your symptoms get worse. Your symptoms do not get better within 10 days. Get help right away if: You have a very bad headache. You cannot stop throwing up (vomiting). You have very bad pain or swelling around your face or eyes. You have trouble seeing. You feel confused. Your neck is stiff. You have trouble breathing. Summary Sinusitis is swelling of your sinuses. Sinuses are hollow spaces in the bones around your face. This condition is caused by tissues in your nose that become inflamed or swollen. This traps germs. These can lead to infection. If you were prescribed an antibiotic medicine, take it as told by your doctor. Do not stop taking it even if you start to feel better. Keep all follow-up visits as told by your doctor. This is important. This information is not intended to replace advice given to you by your health care provider. Make sure you discuss any questions you have with your health care provider. Document Released: 02/07/2009 Document Revised: 01/22/2019 Document Reviewed: 01/22/2019 [employer] Patient Education 2020 [employer]. Follow Up Care 08/25/2022 09:09:24 With:Marya Son CNP Address:Unknown When: Unknown [facility] 06-08-2022 Hospital Discharge instructions Follow Up Care 06/08/2022 11:09:52 With:Marya Son CNP Address: [address] [place] [address] [place] [address]- [phone] When:3 months [facility] Evaluation + Plan note Future Appointments Appointment Date:09/22/2022 02:20:00 PM Scheduled Provider:Marya Son CNP Location:[facility] Appointment Type: Open Future Scheduled TestsXR Clavicle Right 06/16/22 [facility] Evaluation + Plan note Future Appointments Appointment Date:09/22/2022 02:20:00 PM Scheduled Provider:Marya Son CNP Location:[facility] Appointment Type: Open [facility] Evaluation + Plan note Future Appointments Appointment Date:12/22/2023 09:15:00 AM Scheduled Provider:Vamsi Chang MD Location:[facility] Appointment Type: Open Appointment Date:03/12/2024 09:30:00 AM Scheduled Provider: Location:[facility] Appointment Type:FM Medicare Wellness Subsequent [facility] Evaluation + Plan note Future Appointments Appointment Date:03/12/2024 09:30:00 AM Scheduled Provider: Location:[facility] Appointment Type:FM Medicare Wellness Subsequent [facility] Evaluation note Diagnosis Seborrheic keratosis- Primary Neoplasm of unspecified behavior of bone, soft tissue, and skin documented [facility] Narrative No data available for this section [facility] Hospital Discharge instructions No data available for this section [facility] data available for this section [facility] Summary Purpose Family History No Family History Records Found Advance Directives No Advanced Directives Records FoundNo Advanced Directives Records Found Additional Source Comments Patient Care team informatio n (unrecognized section and content) Personnel Name: Marya Son CNP Address: Address: [address] [place] [address] Personnel Name: Marya Son CNP Address: Address: [address] [place] [address] Personnel Name: Marya Son CNP Address: Address: [address] [place] [address] Personnel Name: Marya Son CNP Address: Address: [address] [place] [address] Personnel Name: Marya Son CNP Address: Address: [address] [place] [address] Personnel Name: Vamsi Chang MD Address: Address: [address] [place] [address] Personnel Name: Vamsi Chang MD Address: Address: [address] [place] [address] Reason for Visit (unrecogniz ed section and content) Reason Comments Suspicious Skin Lesion (unrecognized sect ion and content) No Status Records FoundNo Status Records Found INFORMATION SOURCE (unrecogn ized section and content) DATE CREATED AUTHOR 01/07/2024 [facility] DATE CREATED AUTHOR AUTHOR'S ORGANIZ ATION 03/07/2024 [facility] FOR RECORDS PERTAINING TO PATIENTS WHO ARE OR HAVE BEEN ENROLLED IN A CHEMICAL DEPENDENCY/SUBSTANCEABUSE PROGRAM, SOME INFORMATION MAY BE OMITTED. This clinical summary was aggregated from multiple sources. Caution should be exercised in using it in the provision of clinical care. This summary normalizes information from multiple sources, and as a consequence, information in this document may materially change the coding, format and clinical context of patient data. In addition, data may be omitted in some cases. CLINICAL DECISIONS SHOULD BE BASED ON THE PRIMARY CLINICAL RECORDS. [facility] provides no warranty or guarantee of the accuracy or completeness of information in this document.
--- NOTE | 2024-03-22 15:42 | CT_ITS ---
The [address] [address] Patient Name: LOUISE LOPEZ MRN: [id number] date: 1950 Sex: M Assigned Patient Location: ER Current Patient Location: ER Accession/Order Number: [id number] Exam Date: 03/22/2024 16:00 Report Date: 03/22/2024 16:15 At the request of: ELAINE LAMBERT Procedure: CT stroke head/brain wo con EXAM: CT stroke head/brain wo con HISTORY: Dizziness for 3 days and left arm numbness started yesterday. TECHNIQUE: Axial CT scans through the head were obtained without IV contrast administration. Dose reduction techniques were achieved by using: automated exposure control and/or adjustment of mA and/or kV according to patient size and/or use of an iterative reconstruction technique. COMPARISON: Brain MRI on 10/12/2023 FINDINGS: Mild periventricular low attenuation in the cerebral hemispheres without associated mass effect. An old lacunar infarct in the left basal ganglia is unchanged. The brainstem and the cerebellum appear normal. The ventricular system and cortical sulci are prominent, secondary to cerebral volume loss. No area of abnormal mass effect, edema, or intracranial hemorrhage is shown. The visualized orbits show no abnormal mass. The visualized paranasal sinuses show no air-fluid level. Mastoid air cells are clear. CT/CT stroke head/brain wo con IMPRESSION: 1. Mild old microvascular ischemic change and age-related cerebral atrophy. An old lacunar infarct in the left basal ganglia. 2. No acute intracranial process. Electronically authenticated by: BRYAN OATES Date: 03/22/2024 16:15
--- NOTE | 2024-03-22 15:42 | CT_ITS ---
[address] [address] Patient Name: LOUISE LOPEZ MRN: [id number] date: 1950 Sex: M Assigned Patient Location: ER Current Patient Location: ED.[facility] Accession/Order Number: [id number] Exam Date: 03/22/2024 15:50 Report Date: 03/22/2024 17:14 At the request of: ELAINE LAMBERT Procedure: CT angio neck CT angio neck, CT angio head, 03/22/2024 3:50 PM EDT INDICATION: Dizziness COMPARISON: Prior CT of the same date and MRI dated 10/12/2023 TECHNIQUE: Pre and postcontrast enhanced CT angiography of the head and neck were acquired with contrast .3 D MIP images were reconstructed in sagittal and coronal format at the scanner and were evaluated at the time of dictation. Dose reduction techniques were achieved by using automated exposure control and/or adjustment of mA and/or kV according to patient size and/or use of iterative reconstruction technique. FINDINGS: The great vessels enhance normally. No filling defects are identified within the carotid arteries. There is no stenosis at the origin of the internal carotid arteries. No abnormality of [place] is noted. The VANESSA MCA and PROCESS MANAGER are unremarkable. The anterior and posterior communicating arteries are patent. There is no aneurysm or significant stenosis. No abnormality of the vertebral and basilar arteries is noted. No mass, mass effect or midline shift or hemorrhage in the brain parenchyma is noted. No significant soft tissue abnormality within the neck is noted. The visualized portion of the lungs is unremarkable. No suspicious bone lesion is noted. Multilevel degenerative changes of cervical spine. CT/CT angio neck IMPRESSION: No CT evidence of embolus or severe stenosis or dissection in the major arteries in the current study. CAROTID STENOSIS REFERENCE: MILD = <50% stenosis. MODERATE = 50-69% stenosis. SEVERE = >70% stenosis. Electronically authenticated by: RALPH SÁNCHEZ Date: 03/22/2024 17:14
--- NOTE | 2024-03-22 15:42 | CT_ITS ---
[address] [address] Patient Name: LOUISE LOPEZ MRN: [id number] date: 1950 Sex: M Assigned Patient Location: ER Current Patient Location: .[facility] Accession/Order Number: [id number] Exam Date: 03/22/2024 15:50 Report Date: 03/22/2024 17:14 At the request of: ELAINE LAMBERT Procedure: CT angio head CT angio neck, CT angio head, 03/22/2024 3:50 PM EDT INDICATION: Dizziness COMPARISON: Prior CT of the same date and MRI dated 10/12/2023 TECHNIQUE: Pre and postcontrast enhanced CT angiography of the head and neck were acquired with contrast .3 D MIP images were reconstructed in sagittal and coronal format at the scanner and were evaluated at the time of dictation. Dose reduction techniques were achieved by using automated exposure control and/or adjustment of mA and/or kV according to patient size and/or use of iterative reconstruction technique. FINDINGS: The great vessels enhance normally. No filling defects are identified within the carotid arteries. There is no stenosis at the origin of the internal carotid arteries. No abnormality of [place] is noted. The VANESSA MCA and MARKETING SYSTEMS ANALYST are unremarkable. The anterior and posterior communicating arteries are patent. There is no aneurysm or significant stenosis. No abnormality of the vertebral and basilar arteries is noted. No mass, mass effect or midline shift or hemorrhage in the brain parenchyma is noted. No significant soft tissue abnormality within the neck is noted. The visualized portion of the lungs is unremarkable. No suspicious bone lesion is noted. Multilevel degenerative changes of cervical spine. CT/CT angio head IMPRESSION: No CT evidence of embolus or severe stenosis or dissection in the major arteries in the current study. CAROTID STENOSIS REFERENCE: MILD = <50% stenosis. MODERATE = 50-69% stenosis. SEVERE = >70% stenosis. Electronically authenticated by: RALPH SÁNCHEZ Date: 03/22/2024 17:14
--- NOTE | 2024-03-22 15:42 | ECG_ITS ---
The [facility] Test Date: 2024-03-22 Pat Name: LOUISE LOPEZ Department: Room: - Gender: Male Horse Wrangler: : 1950 Requested By: RANJIT MATHEW Order Number: [id number] Reading MD: MYRANDA ONEIL Measurements Intervals [place] Rate: 53 P: 67 [place]: 166 QRS: 34 QRSD: 88 T: 39 QT: 428 QTc: 412 Interpretive Statements 1100 Sinus rhythm 9110 normal ECG No previous ECG available for comparison Electronically Signed On 03-23-2024 5:30:50 EDT by MYRANDA ONEIL
--- NOTE | 2024-03-22 15:42 | XR_ITS ---
[address] [address] Patient Name: LOUISE LOPEZ MRN: [id number] date: 1950 Sex: M Assigned Patient Location: ER Current Patient Location: ED.MAIN Accession/Order Number: [id number] Exam Date: 03/22/2024 16:09 Report Date: 03/22/2024 17:05 At the request of: ELAINE LAMBERT Procedure: XR chest 1V EXAMINATION: XR chest 1V, , 03/22/2024 4:09 PM EDT INDICATION: Dizzy HISTORY: Ordering Provider Reason for Exam: Dizzy Technologist Note: Additional: COMPARISON: None. TECHNIQUE: Chest x-ray: One view. FINDINGS: No pneumothorax, pleural effusion or focal airspace consolidation. Heart is normal in size. Bony thorax is unremarkable. XR/XR chest 1V IMPRESSION: No acute cardiopulmonary process. Electronically authenticated by: TRESA MICHELLE Date: 03/22/2024 17:05
--- NOTE | 2024-03-22 15:44 | ED_ITS ---
HPI HPI - General Adult General Chief complaint: Dizziness Stated complaint: dizziness, l arm numbness 2 days ago Time Seen by Provider: 03/22/24 15:30 Source: patient Mode of arrival: Wheelchair History of Present Illness HPI narrative: Patient is a 73-year-old male who presents to the emergency department for the evaluation of dizziness intermittently over the last 2 days. He states he has the sensation of being off balance drunken rest[employer] lace [employer] text[employer] type sensation. He denies any sensation of spinning, visual loss. He states his was concerned because 2 days ago after laying on his left arm, he stated that the arm was numb and he was not able to control it for about 15 seconds. This has completely resolved and he has not had any continued peripheral paresthesias. No vomiting or diarrhea. He was treated for COVID at the beginning of this month. Patient's previous records were reviewed showing that he had an MRI of the brain in October of this year, patient states that was performed for issues carlos eduardo mbering people's names, the MRI was unremarkable. Patient takes atorvastatin at home, no other major medical problems Related Data Home Medications ?Medication ?Instructions ?Recorded ?Confirmed atorvastatin 10 mg tablet mg 03/22/24 Previous Rx's ?Medication ?Instructions ?Recorded meclizine 25 mg chewable tablet 25 mg PO QID PRN dizziness #12 tabs 03/22/24 (Antivert) ondansetron 4 mg disintegrating 4 mg PO Q6H PRN nausea and 03/22/24 tablet vomiting #12 tabs Allergies Allergy/AdvReac Type Severity Reaction Status Date / Time NSAIDS (Non-Steroidal AdvReac Intermediate Dizziness Verified 03/22/24 15:34 Anti-Inflamma Opioid HPI Opioid Management Most Recent Opioid Data: No Data to Display Review of Systems ROS Constitutional Denies: fever or chills Eyes Denies: change in vision Ears, nose, mouth, and throat Denies: throat pain Cardiovascular Denies: chest pain Respiratory Denies: shortness of breath Gastrointestinal Denies: nausea or vomiting Musculoskeletal Denies: back pain or neck pain Integumentary/Breast Denies: rash Neurological Reports: numbness in extremities and dizziness; Denies: headache Hematologic/Lymphatic Denies: easy bruising or easy bleeding Exam Narrative Exam Narrative: Gen.: Awake, alert, in no distress Head: Normocephalic, atraumatic ENT: Moist mucous membranes, bilateral TMs clear Respiratory: No respiratory distress, lungs clear bilaterally Cardio: Regular rate and rhythm Gastrointestinal: Abdomen is soft, nondistended and nontender to palpation Extremities: Moves extremities equally Psych: Normal mood and affect Neuro: No focal neuro deficit Skin: Warm, dry, intact Constitutional Vital Signs, click to edit/add: Last Vital Signs Temp 98 F 03/22/24 15:27 Pulse 58 L 03/22/24 15:27 Resp 16 03/22/24 15:27 BP 135/67 03/22/24 15:27 Pulse Ox 97 03/22/24 15:27 Course Vital Signs Vital signs: Vital Signs Temperature 98 F 03/22/24 15:27 Pulse Rate 58 L 03/22/24 15:27 Respiratory Rate 16 03/22/24 15:27 Blood Pressure 135/67 03/22/24 15:27 Pulse Oximetry 97 03/22/24 15:27 Temperature 98 F 03/22/24 15:27 Pulse Rate 58 L 03/22/24 15:27 Respiratory Rate 16 03/22/24 15:27 Blood Pressure 135/67 03/22/24 15:27 Pulse Oximetry 97 03/22/24 15:27 Medical Decision Making MDM Narrative Medical decision making narrative: Patient sent for CT with stroke protocol, no acute change from MRI in October. CT angio of the head and neck are also unremarkable. Patient with stable lab studies, normal EKG. He had improvement with IV fluids, Antivert and Zofran. He will be discharged home with Antivert and Zofran to follow-up with his PCP. Vital signs are within normal limits, patient reports improvement with medications in the ER. Return to the emergency department if symptoms change or worsen SUPERVISED APC VISIT, PHYSICIAN ATTESTATION: Based on the medical record the care appears appropriate. ? Medical Records Medical records reviewed: Yes I reviewed the patient's medical records Lab Data Lab results reviewed: Yes I reviewed the patient's lab results Labs: Lab Results 03/22/24 03/22/24 Range/Units 15:44 16:55 WBC 7.3 (4.0-11.0) 10^3/uL RBC 4.34 L (4.70-6.10) 10^6/uL Hgb 13.4 L (14.0-18.0) g/dL Hct 39.1 L (42.0-54.0) % MCV 90.1 (80.0-94.0) fL MCH 30.9 (25.9-34.0) pg MCHC 34.3 (29.9-35.2) g/dL RDW 12.6 (11.0-15.0) % Plt Count 322 (150-450) 10^3/uL MPV 9.7 (9.5-13.5) fL Neut % (Auto) 77.8 H (43.0-75.0) % Lymph % (Auto) 12.1 L (20.5-60.0) % [place] % (Auto) 8.9 (1.7-12.0) % Eos % (Auto) 0.4 L (0.9-7.0) % Baso % (Auto) 0.4 (0.2-2.0) % Neut # (Auto) 5.7 (1.4-6.5) 10^3/uL Lymph # (Auto) 0.9 L (1.2-3.8) 10^3/uL [place] # (Auto) 0.7 (0.3-0.8) 10^3/uL Eos # (Auto) 0.0 (0.0-0.7) 10^3/uL Baso # (Auto) 0.0 (0.0-0.1) 10^3/uL Abs Immat Gran (auto) 0.03 (0.00-0.03) 10^3/uL Imm/Tot Granulo (auto) 0.4 (0.0-0.5) % PT 11.4 (9.0-11.6) sec INR 1.08 Sodium 137 (136-145) mmol/L Potassium 3.5 (3.5-5.1) mmol/L Chloride 103 (98-107) mmol/L Carbon Dioxide 28.3 (21.0-32.0) mmol/L Anion Gap 9.2 BUN 17.0 (7.0-18.0) mg/dL Creatinine 0.90 (0.70-1.30) mg/dL Est GFR ( Amer) >60 (>=60) Est GFR (Non-Af Amer) >60 (>=60) BUN/Creatinine Ratio 18.9 Glucose 111 H (74-106) mg/dL Lactate 1.1 (0.4-2.0) mmol/L Calcium 8.5 (8.5-10.1) mg/dL Total Bilirubin 0.5 (0.2-1.0) mg/dL AST 20 (15-37) U/L ALT 23 (16-63) U/L Alkaline Phosphatase 57 (46-116) U/L Troponin I High Sens 4.0 (4.0-76.1) pg/mL Total Protein 7.6 (6.4-8.2) g/dL Albumin 3.5 (3.4-5.0) g/dL Globulin 4.1 g/dL Albumin/Globulin Ratio 0.9 TSH 1.202 (0.358-3.740) uIU/mL Urine Color Lt. yellow (YELLOW) Urine Clarity Clear (CLEAR) Urine pH 8.0 (5.0-9.0) Ur Specific [place] 1.010 (1.005-1.025) Urine Protein Negative (NEG/TRACE) mg/dL Urine Glucose (UA) Negative (NEGATIVE) mg/dL Urine Ketones Negative (NEGATIVE) mg/dL Urine Occult Blood Negative (NEGATIVE) Urine Nitrite Negative (NEGATIVE) Urine Bilirubin Negative (NEGATIVE) Urine Urobilinogen 0.2 (0.2-1.0) EU/dL Ur Leukocyte Esterase Negative (NEGATIVE) Imaging Data CT scan - head: Attestation: I have reviewed the pertinent imaging results. Radiologist's impression: ITS Impressions Brain CT 03/22/24 15:42 IMPRESSION: 1. Mild old microvascular ischemic change and age-related cerebral atrophy. An old lacunar infarct in the left basal ganglia. 2. No acute intracranial process. Electronically authenticated by: BRYAN OATES Date: 03/22/2024 16:15 Chest X-Ray 03/22/24 15:42 IMPRESSION: No acute cardiopulmonary process. Electronically authenticated by: TRESA MICHELLE Date: 03/22/2024 17:05 Head CTA 03/22/24 15:42 IMPRESSION: No CT evidence of embolus or severe stenosis or dissection in the major arteries in the current study. CAROTID STENOSIS REFERENCE: MILD = <50% stenosis. MODERATE = 50-69% stenosis. SEVERE = >70% stenosis. Electronically authenticated by: RALPH SÁNCHEZ Date: 03/22/2024 17:14 Neck CTA 03/22/24 15:42 IMPRESSION: No CT evidence of embolus or severe stenosis or dissection in the major arteries in the current study. CAROTID STENOSIS REFERENCE: MILD = <50% stenosis. MODERATE = 50-69% stenosis. SEVERE = >70% stenosis. Electronically authenticated by: RALPH SÁNCHEZ Date: 03/22/2024 17:14 ECG Data Attestation: I personally reviewed and interpreted this ECG as follows: (Normal sinus rhythm at a rate of 53, no acute ST elevation or ectopy. EKG reviewed by attending physician) Discharge Plan Discharge Stand Alone Forms: Portal Instructions Chief Complaint: Dizziness Clinical Impression: Benign paroxysmal positional vertigo Patient Disposition: Home, Self-Care Time of Disposition Decision: 17:21 Condition: Good Prescriptions / Home Meds: New ondansetron 4 mg tablet,disintegrating 4 mg PO Q6H PRN (Reason: nausea and vomiting) Qty: 12 0RF meclizine [Antivert] 25 mg tablet,chewable 25 mg PO QID PRN (Reason: dizziness) Qty: 12 0RF No Action atorvastatin 10 mg tablet Print Language: Indonesian Instructions: Dizziness (ED) Referrals: RANJIT MATHEW [Primary Care Provider] - 1 week
[2024-03-22 15:55] LABS: Basophils Percent Auto 0.4 % (0.2-2.0); Eosinophils Percent Auto 0.4 % (0.9-7.0); Hematocrit 39.1 % (42.0-54.0); Hemoglobin 13.4 g/dL (14.0-18.0); Immature Granulocytes Abs Auto 0.03 10^3/uL (0.00-0.03); Immature Granulocytes Pct Auto 0.4 % (0.0-0.5); Lymphocytes Absolute Auto 0.9 10^3/uL (1.2-3.8); Lymphocytes Percent Auto 12.1 % (20.5-60.0); Mean Corpuscular HGB Conc 34.3 g/dL (29.9-35.2); Mean Corpuscular Hemoglobin 30.9 pg (25.9-34.0); Mean Corpuscular Volume 90.1 fL (80.0-94.0); Mean Platelet Volume 9.7 fL (9.5-13.5); Monocytes Absolute Auto 0.7 10^3/uL (0.3-0.8); Monocytes Percent Auto 8.9 % (1.7-12.0); Neutrophils Absolute Auto 5.7 10^3/uL (1.4-6.5); Neutrophils Percent Auto 77.8 % (43.0-75.0); Platelet Count 322 10^3/uL (150-450); Red Blood Count 4.34 10^6/uL (4.70-6.10); Red Cell Distribution Width 12.6 % (11.0-15.0); White Blood Count 7.3 10^3/uL (4.0-11.0)
[2024-03-22 16:11] LABS: INR 1.08; Prothrombin Time 11.4 sec (9.0-11.6)
[2024-03-22] MEDS: MECLIZINE HCL 12.5 MG TABLET 25 MG PO (16:16)
[2024-03-22] MEDS: 0.9 % SODIUM CHLORIDE 1,000 ML 999 ML IV (16:17)
[2024-03-22] MEDS: ONDANSETRON PF 4 MG/2 ML VIAL IV (16:17)
[2024-03-22 16:23] LABS: Alanine Aminotransferase 23 U/L (16-63); Albumin Globulin Ratio 0.9; Albumin Level 3.5 g/dL (3.4-5.0); Alkaline Phosphatase 57 U/L (46-116); Anion Gap 9.2; Aspartate Amino Transferase 20 U/L (15-37); BUN Creatinine Ratio 18.9; Bilirubin Total 0.5 mg/dL (0.2-1.0); Calcium 8.5 mg/dL (8.5-10.1); Carbon Dioxide 28.3 mmol/L (21.0-32.0); Chloride 103 mmol/L (98-107); Estimated GFR (African America >60 (>=60); Estimated GFR (Non-African Ame >60 (>=60); Globulin 4.1 g/dL; Glucose 111 mg/dL (74-106); Potassium 3.5 mmol/L (3.5-5.1); Sodium 137 mmol/L (136-145); Total Protein 7.6 g/dL (6.4-8.2)
[2024-03-22 16:28] LABS: Lactate/Lactic Acid 1.1 mmol/L (0.4-2.0)
[2024-03-22 16:32] LABS: Thyroid Stimulating Hormone 1.202 uIU/mL (0.358-3.740)
[2024-03-22 17:07] LABS: Bilirubin Urine NEGATIVE (NEGATIVE); Blood Urine NEGATIVE (NEGATIVE); Clarity Urine CLEAR (CLEAR); Color Urine LT. YELLOW (YELLOW); Glucose Urine UA NEGATIVE (NEGATIVE); Ketones Urine NEGATIVE (NEGATIVE); Leukocyte Esterase Urine NEGATIVE (NEGATIVE); Nitrite Urine NEGATIVE (NEGATIVE); Protein Urine NEGATIVE (NEG/TRACE); Urobilinogen Urine 0.2 EU/dL (0.2-1.0)
[2024-03-22 17:10] LABS: Urine Microscopic Indicated NO
== END 2024-03-22 17:32 | disposition home or self-care (01) ==
PROVIDERS: Physician Assistant; Emergency Provider Emergency Medicine Emergency Medical Services; PCP Family Medicine
DX: H81.10 Benign paroxysmal vertigo, unspecified ear (principal); Z79.899 Other long term (current) drug therapy; Z86.16 Personal history of COVID-19
CPT/HCPCS: 36415; 70450; 70496; 70498; 71045; 80053; 81003; 83605; 84443; 84484; 85025; 85610; 93005; 96361; 96374; 99285; J2405; Q9967